=== PATIENT | male | born 1955 | race Caucasian/White ===

== ENCOUNTER 2017-12-10 08:45 | Emergency (ER) | payer SELFPAY ==
[2017-12-10 09:35] VITALS: BP 161/86
--- NOTE | 2017-12-10 10:03 | UC ---
Upper Extremity HPI - HPI Summary HPI Summary: pain right thumb x 3 days + redness, swelling , no injury , no fever - History of Current Complaint Chief Complaint: UCUpperExtremity Stated Complaint: RIGHT THUMB COMPLAINT Time Seen by Provider: 12/10/17 09:25 Hx Obtained From: Patient Onset/Duration: Gradual Onset, Lasting Days - 3, Still Present Severity Initially: Moderate Severity Currently: Severe Pain Intensity: 8 Pain Scale Used: 0-10 Numeric Location Of Pain: Is Discrete @ - right thumb Character: Throbbing Aggravating Factor(s): Movement Alleviating Factor(s): Nothing Associated Signs And Symptoms: Positive: Swelling, Redness - Allergies/Home Medications Allergies/Adverse Reactions: Allergies Allergy/AdvReac Type Severity Reaction Status Date / Time No Known Allergies Allergy Verified 12/10/17 09:28 Home Medications: Home Medications Acetaminophen TAB* [Tylenol TAB*] 650 mg PO Q4H PRN 12/10/17 [History Confirmed 12/10/17] Ibuprofen TAB* [Advil TAB*] 600 - 800 mg PO Q6H PRN 12/10/17 [History Confirmed 12/10/17] PMH/Surg Hx/FS Hx/Imm Hx - Additional Past Medical History Additional PMH: gout, - Surgical History Surgical History: Yes Surgery Procedure, Year, and Place: Lumbar Bone Spurs and "Growth Cord", 1992 - Family History Known Family History: Negative: Diabetes - Social History Alcohol Use: 1-6 daily Substance Use Type: None Smoking Status (MU): Heavy Every Day Tobacco Smoker Amount Used/How Often: 1/2-3/4 PPD M-F; 2 PPD Weekends Length of Time of Smoking/Using Tobacco: On and Off Since Age 17 - Immunization History Most Recent Influenza Vaccination: not this season Review of Systems Constitutional: Negative Skin: Negative Eyes: Negative ENT: Negative Respiratory: Negative Cardiovascular: Negative Is Patient Immunocompromised?: No All Other Systems Reviewed And Are Negative: Yes Physical Exam Triage Information Reviewed: Yes Appearance: Well-Appearing, No Pain Distress, Well-Nourished Vital Signs: Initial Vital Signs Temp 98 F 12/10/17 09:26 Pulse 74 12/10/17 09:26 Resp 16 12/10/17 09:26 BP 161/86 12/10/17 09:26 Pulse Ox 99 12/10/17 09:26 Vital Signs Reviewed: Yes Eye Exam: Normal Eyes: Positive: Conjunctiva Clear ENT: Positive: Normal ENT inspection, Hearing grossly normal, Pharynx normal Neck: Positive: Supple, Nontender, No Lymphadenopathy Respiratory: Positive: Chest non-tender, Lungs clear, Normal breath sounds Cardiovascular: Positive: RRR, No Murmur, Pulses Normal Musculoskeletal: Positive: Other: - right thumb: dip : + erythema, swelling, verty tender to touch, limited ROM Upper Extremity Course/Dx - Differential Dx/Diagnosis Differential Diagnosis/HQI/PQRI: Arthritis - gout Provider Diagnoses: cellulitis right thumb Discharge - Discharge Plan Condition: Stable Disposition: HOME Prescriptions: Cephalexin CAP* [Keflex CAP*] 500 mg PO TID #30 cap Indomethacin CAP* [Indocin CAP*] 50 mg PO TID PRN #15 cap PRN Reason: Pain - Arthritis Patient Education Materials: Cellulitis (ED) Referrals: No Primary Care Phys,NOPCP [Primary Care Provider] - Additional Instructions: ? cellulitis / abscess / Gout use warm compresses , keflex 500 mg 3 x per day , indocin 3x per day as needed for pain and inflammation follow up in 2 days , sooner if getting worse
== END 2017-12-10 09:48 | disposition home or self-care (01) ==
LOC: UCCORT 08:45
DX: L03.011 Cellulitis of right finger (principal); Z72.0 Tobacco use
CPT/HCPCS: 99202; G0463